=== PATIENT | female | born 1970 | race Caucasian/White ===

== ENCOUNTER → 2021-10-29 | Outpatient (CLI) | payer MEDICAID, OTHER ==
[~2021-10-29] MED LIST: ALBU17AE23 IH; ASP81CT PO; AZIT500T2 PO; FRS325T PO; GBPN300C PO; GUAI10LI PO; IBP600T1 PO; INSASP10V SQ; INSU100C4 SQ; INSU100I14 SQ; INSU100I16 SQ; INSU100I5 SQ; LISI2.5T PO; MULT-963 PO; OXYC-12 PO; PARO20TA57 PO; PRD20T PO
== END ==
LOC: LABNPT 12:24
PROVIDERS: ATTEND Pediatrics
DX: I50.32 Chronic diastolic (congestive) heart failure (principal); N20.0 Calculus of kidney; N18.9 Chronic kidney disease, unspecified; D63.1 Anemia in chronic kidney disease
CPT/HCPCS: 82550